=== PATIENT | male | born 1945 | race Caucasian/White ===

== ENCOUNTER 2016-11-08 12:50 | Inpatient (IN) | payer MEDICARE ==
[~2016-11-08] VITALS: Ht 182.9 cm; Wt 108.2 kg
[2016-11-08] VITALS (29 sets, daily range): BP systolic 82–156; BP diastolic 42–86; BMI 29.9
--- NOTE | 2016-11-08 12:00 | NUR ---
PT ARRIVED TO ROOM VIA STRETCHER FROM EMS MED FLIGHT. PT IS ON VENTILATOR. SETTINGS OF 100%, RESP. 14, 550, PEEP 5. O2 SAT OF 98%. BP 130/60, HR 101, TEMP 98.0 TEMPORAL. ETT SIZE 8.0 AT 24CM LIP LINE. HAS OG TUBE. NAVARRO CONTAINS SMALL AMOUNT OF DARK URINE. PT HAS BILATERAL ARM EDEMA, BRUISING AND DRY SCALY SKIN. ABDOMEN IS ROUND, BUT SOFT. OLD BRUISING JUST ABOVE NAVEL. RIGHT KNEE APPEARS SWOLLEN, BUTTOCKS RED BUT BLANCHABLE, FEET BILATERAL ARE DISCOLORED RED/PURPLE, PULSES WEEK, SKIN DRY AND CRACKING. PIV TO LEFT FOREARM HAS DOPAMINE AND NS. PT PLACED IN RESTRAINS AND HOOKED UP TO MONITORING EQUIPMENT.
--- NOTE | 2016-11-08 13:36 | NUR ---
PT NOW HAS 22G TO UPPER LEFT ARM. DIPRIVAN RUNNING, DOPAMINE AND NS. VENT SETTINGS NOW AT 75%, RESP 16, 600 AND PEEP 5.
[2016-11-08 14:51] LABS: BASOPHILS 0.2 % (0.0-2.0); EOSINOPHILS 0.5 % (0-7); HEMATOCRIT 38.9 % (42.0-54.0); HEMOGLOBIN 12.1 g/dL (13.5-17.5); IMMATURE GRANULOCYTES 0.3 % (0-5); LYMPHOCYTES 8.6 % (15-50); MCH 30.9 pg (26.0-34.0); MCHC 31.1 g/dL (31.0-37.0); MCV 99.2 fL (80.0-100.0); MEAN PLATELET VOLUME 9.7 fL (7.4-10.4); MONOCYTES 10.6 % (2-11); NEUTROPHILS 79.8 % (40-80); PLATELET COUNT 176 10x3/uL (130-400); RBC 3.92 10x6/uL (4.20-6.10); RDW 14.4 % (11.5-14.5)
--- NOTE | 2016-11-08 14:57 | NUR ---
FAMILY HAS BEEN IN TO SEE PATIENT. SOME ADDITIONAL INFORMATION PROVIDED. DR KEATING HERE NOW TO SEE PATIENT
[2016-11-08 15:00] LABS: ALBUMIN 1.7 g/dL (3.4-5.0); BILIRUBIN - TOTAL 1.41 mg/dL (0.2-1.3); CALCIUM 8.2 mg/dL (8.5-10.1); CARBON DIOXIDE 21.4 mmol/L (21.0-32.0); CREATININE - SERUM 4.3 mg/dL (0.6-1.3); PROTEIN - SERUM 5.5 g/dL (6.4-8.2)
[2016-11-08 15:06] LABS: ANION GAP 18.4 mmol/L (8-16)
[2016-11-08 15:07] LABS: POTASSIUM - SERUM 6.8 mmol/L (3.5-5.1)
--- NOTE | 2016-11-08 15:34 | NUR ---
Is the patient Alert and Oriented? Yes 0 * How many steps to enter\exit or inside your home? 3 0 * PCP DR MCKAY IN [place] 0 * Pharmacy [facility] IN [place] 0 * Preadmission Environment Home Alone 0 * ADLs Independent 0 * Equipment None 0 * List name and contact numbers for known caregivers / representatives who currently or will assist patient after discharge: SISTER: JORDY PACHECO (H) [phone] (C) [phone] 0 * Community resources currently utilized None 0 * Additional services required to return to the preadmission environment? No 0 * Can the patient safely return to the preadmission environment? Yes 0 * Has this patient been hospitalized within the prior 30 days at any hospital? No 0 PATIENT STATES HE LIVES AT HOME ALONE. HIS SISTER, JORDY, WILL ASSIST HIM AT DISCHARGE. SHE WILL DRIVE HIM HOME. PATIENT STATES HIS PCP IS DR. MCKAY IN [place]. HE GETS HIS MEDS FROM [facility] IN [place]. HE DENIES USE OF ANY EQUIPMENT AND DENIES EVER HAVING HOME HEALTH. THERE ARE 3 STEPS TO ENTER HIS HOME. NO DISCHARGE NEEDS AT THIS TIME.
--- NOTE | 2016-11-08 15:46 | NUR ---
Is the patient Alert and Oriented? No 0 * How many steps to enter\exit or inside your home? 2 0 * PCP DR. BURRIS AT [facility] IN [facility] 0 * Pharmacy [facility] IN [facility] 0 * Preadmission Environment Home Alone 0 * ADLs Independent 0 * Equipment Oxygen Rolling Walker Wheelchair 0 * Other Equipment PATIENT O2 PROVIDED BY [facility] IN [facility] 0 * List name and contact numbers for known caregivers / representatives who currently or will assist patient after discharge: SON: YOLANDA [phone] DIL: NATALIA OZUNA [phone] 0 * Additional services required to return to the preadmission environment? Yes 0 * Can the patient safely return to the preadmission environment? No 0 * Has this patient been hospitalized within the prior 30 days at any hospital? No 0 PATIENT IS NOT RESPONSIVE AND ON THE VENT. HIS GRANDAUGHTER, MARTIN DAVID, STATES SHE TAKES CARE OF HIM 3 DAYS PER WEEK. SHE STATES SHE PICKS UP MEDS AND SETS THEM UP FOR HIM. SHE STATES HE HAS A WALKER AND W/C BUT DOES NOT USE THEM. HE IS ON O2 AT 2-3 LITERS AROUND THE CLOCK. PATIENT'S PCP IS DR. BURRIS AT THE [facility] IN [facility]. HE GETS HIS MEDS FROM [facility] IN [facility]. HIS FAMILY WILL DRIVE HIM HOME AT DISCHARGE. PATIENT HAS 2 STEPS TO ENTER HIS HOME.
--- NOTE | 2016-11-08 17:20 | NUR ---
CALLED DR HAWKINS ANSWER SERVICE TO PAGE FOR CONSULT NOTIFICATION TO SEE PATIENT IN THE AM
--- NOTE | 2016-11-08 17:42 | NUR ---
PT IS STILL OFF OF SEDATION OF 1336PM NO EYE OPENING BY SELF SINCE AROUND 1430 PM. DOES NOT RESPOND TO PRESSURE AT FINGERNAILS/TIPS. NO RESPONSE TO "TICKLING" OF FEET BY FAMILY, NOR PRESSURE PPLIED TO A PEN BEING PULLED ALONG FOOT FROM HEEL TO TOE. DOES NOT FOLLOW COMMANDS. DOES NOT COUGH OR GAG WHEN SUCTIONING ETT. PT IS TO HAVE TRIALYSIS CATH PLACED THIS EVENING BY DR CHLIDERS, CONSENT FOR PROCEDURE AND BLOOD IS SIGNED AND IN CHART. PT IS TO HAVE DIALYSIS WHEN LINE IS PLACED. MOST RECENT VENT SETTING IS SIMV 16, 600, PS10, 40%, PEEP5
--- NOTE | 2016-11-08 18:48 | NUR ---
13F 24CM TRIALYSIS CATH PLACED IN LEFT JUGULAR BY DR CHILDERS AT BEDSIDE
--- NOTE | 2016-11-08 19:14 | NUR ---
REPORT RECIEVED. ASSESSMENT COMPLETE PER FLOW SHEET. PT DOES NOT OPEN EYES OR FOLLOW COMMANDS NO RESPONSE TO PAINFUL STIMULI EXTREMETIES X4 FLACCID PROPOFOL OFF. WILL CONTINUE TO MONITOR.
--- NOTE | 2016-11-08 19:17 | NUR ---
DID NOT HEAR FROM DR HAWKINS. CALLED HIS CELL PHONE. NO ANSWER. LEFT VOICEMAIL TO RETURN CALL REGARDING A CONSULT.
--- NOTE | 2016-11-08 19:53 | NUR ---
DIALYSIS AT BEDSIDE
--- NOTE | 2016-11-08 22:10 | NUR ---
PT BECOMING INCREASINGLY AGGITATED PT WILL NOT FOLLOW COMMANDS OR RESPOND TO DEEP STIMULI O2 SAT 88% PLACED BACK ON PROPOFOL, RESP AT BEDSIDE O2 VIA VENT INCREASED TO 100% WILL CONTINUE TO MONITOR.
--- NOTE | 2016-11-08 22:29 | NUR ---
DR HAWKINS CALLED BACK T ORDER FOR HEAD CT WITHOUT CONTRAST TO BE ADM. ORDER PLACED CURRENTLY ON DIALYSIS WILL PAGE AGAIN WITH RESULTS. 0421 DR HAWKINS PAGED GIVEN NEW UPDATE PT WAS AT [facility] ADMITTED ON THE AND TRSF TO [facility] ICU FOR DIALYSIS, HEAD CT WAS DONE ON THE AT [facility] GIVEN RESULTS NO NEW INTERVENTIONS NEEDED AT THIS TIME. WILL REVIEW IN AM.
--- NOTE | 2016-11-08 23:15 | NUR ---
REASSESSMENT OCMPLETE PER LFOW SHEET. NO NE4W FINDINGS. VSS DIALYSIS AT BEDSIDE DENIES NEEDS
[2016-11-09] VITALS (28 sets, daily range): BP systolic 102–176; BP diastolic 49–112; Ht 182.9 cm; Wt 108.2 kg
--- NOTE | 2016-11-09 01:16 | NUR ---
DIALYSIS FINISHED 3L REMOVED. PROPOFOL TURNED OF FOR SEDATION VACATION. WILL CONTINUE TO MONITOR.
--- NOTE | 2016-11-09 03:13 | NUR ---
REASESSMENT COMPLETE PER FLOW SHEET. PT UNRESPONSIVE TO PIAINFUL STIMULI. NO FURTHER NEW ASSESSMENTS NOTED. VSS WILL CONTINUE TO MONITOR.
[2016-11-09 03:26] LABS: BASOPHILS 0.2 % (0.0-2.0); EOSINOPHILS 0.7 % (0-7); HEMATOCRIT 37.6 % (42.0-54.0); HEMOGLOBIN 11.7 g/dL (13.5-17.5); IMMATURE GRANULOCYTES 0.3 % (0-5); LYMPHOCYTES 10.2 % (15-50); MCH 30.7 pg (26.0-34.0); MCHC 31.1 g/dL (31.0-37.0); MCV 98.7 fL (80.0-100.0); MEAN PLATELET VOLUME 9.6 fL (7.4-10.4); MONOCYTES 7.7 % (2-11); NEUTROPHILS 80.9 % (40-80); PLATELET COUNT 191 10x3/uL (130-400); RBC 3.81 10x6/uL (4.20-6.10); WBC 11.8 10x3/uL (4.8-10.8)
[2016-11-09 03:42] LABS: ALBUMIN 1.8 g/dL (3.4-5.0); BILIRUBIN - TOTAL 0.67 mg/dL (0.2-1.3); CALCIUM 7.4 mg/dL (8.5-10.1); CARBON DIOXIDE 24.5 mmol/L (21.0-32.0); CREATININE - SERUM 4.1 mg/dL (0.6-1.3); MAGNESIUM - SERUM 1.8 mg/dL (1.8-2.4); PROTEIN - SERUM 6.1 g/dL (6.4-8.2)
[2016-11-09 03:47] LABS: ANION GAP 14.4 mmol/L (8-16); POTASSIUM - SERUM 3.9 mmol/L (3.5-5.1)
--- NOTE | 2016-11-09 05:30 | NUR ---
PT GIVEN BB INCREASINGLY AGGITATED, NO PURPOSEFUL RESPONSES NOTED ON COMMAND, RESPONDS TO DEEP PAINFUL STIMULI. BP ELEVATED TO 160'S RR 31 PROPOFOL RESTARTED. NEEDS MET.
--- NOTE | 2016-11-09 08:04 | CN ---
PATIENT NAME:MARIYA OZUNA MEDICAL RECORD: [id number] : 41 LOCATION:[id number] ADMIT DATE: 11/08/16 ACCOUNT: [id number] CONSULTING PHYSICIAN: GAYLE CHILDERS MD REFERRING PHYSICIAN: SHAYY MARIANO MD DATE OF CONSULTATION: 11/08/2016 Surgical Consultation REASON FOR CONSULTATION: Dialysis access. HISTORY OF PRESENT ILLNESS: This is a 71-year-old male admitted to the ICU. The patient went into respiratory failure en route to the ER, he was intubated. Currently, he is on the ventilator, he is oliguric, he is obtunded. He has a right lower lobe pneumonia. He does have a previous history of nephrectomy. His creatinine is markedly elevated as well as suffering from hypokalemia. All history was obtained through chart review and discussion with the registered nurse. PAST MEDICAL HISTORY: Coronary artery disease with stents and angioplasty, previous SD, hypertension and COPD. PAST SURGICAL HISTORY: Nephrectomy. ALLERGIES: PENICILLIN AND NAPROXEN. FAMILY HISTORY: Unobtainable. SOCIAL HISTORY: Unobtainable, secondary to patient factors. REVIEW OF SYSTEMS: A 12-point review of systems is unobtainable secondary to the patient's respiratory failure. PHYSICAL EXAMINATION: VITAL SIGNS: Temperature 98.3, pulse 85, respiratory rate 16 and blood pressure 118/52. GENERAL: Elderly male in marked distress. NECK: Supple. No thyromegaly. EAR, NOSE AND THROAT: Poor dentition. Eyes: No scleral icterus. CARDIOVASCULAR: Normal sinus rhythm. He has decreased breath sounds bilaterally. He has got bilateral crackles. ABDOMEN: Soft, nontender, and nondistended. SKIN: Warm and dry. Normal turgor. EXTREMITIES: No peripheral edema. SKIN: Warm and dry. IMAGING: Chest x-ray reviewed, which shows congestive failure with bilateral interstitial disease. IMPRESSION: A 71-year-old male with acute respiratory failure, acute renal failure, severe hypokalemia and oliguria. PLAN: We will place an emergent Trialysis line for emergent hemodialysis at nephrology's requests. CONSULT REPORT [id number] MARIYA OZUNA TRANSINT:[id number] Voice Confirmation ID: [id number] DOCUMENT ID: [id number] GAYLE CHILDERS MD at 0804 CC: [id number] DICTATION DATE: 11/08/16 1755 EMPLOYEE RELATIONS DIRECTOR: 11/09/16 0244 ADM IN [facility] [address] [id number]
--- NOTE | 2016-11-09 08:04 | OP ---
PATIENT NAME: MARIYA OZUNA MEDICAL RECORD: [id number] :41 LOCATION:.[facility] D.2307 ADMISSION DATE:11/08/16 SURGEON: GAYLE CHILDERS MD DATE OF OPERATION: 11/08/2016 PREOPERATIVE DIAGNOSES: 1. Hypokalemia. 2. Acute renal failure. 3. Acute respiratory failure. POSTOPERATIVE DIAGNOSES: 1. Hypokalemia. 2. Acute renal failure. 3. Acute respiratory failure. PROCEDURE PERFORMED: Ultrasound-guided Left internal jugular Trialysis line placement. ANESTHESIA: Local. COMPLICATIONS: None. SPECIMENS: None. Case was clean. PROCEDURE COURSE: After consent was obtained, the patient was placed in the supine position is the ICU bed. He was placed in the Trendelenburg position. The neck was prepped and draped in the typical sterile fashion. Timeout taken the confirm the correct patient and procedure. The left internal jugular vein was identified with the ultrasound probe. Local anesthetic was injected. The left internal jugular vein was cannulated under ultrasound guidance. Blood was aspirated, the guidewire was placed, the needle was removed. Skin incision was made with an 11-blade scalpel. Dilator was passed over the wire in standard Seldinger fashion. The catheter was then passed with the wire in standard Seldinger fashion. It was secured to the skin using 2-0 nylon suture and a sterile Tegaderm dressing. At the end of the procedure, all needle and instrument counts correct. No complications occurred. Postprocedure chest x-ray was performed. TRANSINT:[id number] Voice Confirmation ID: [id number] DOCUMENT ID: [id number] GAYLE CHILDERS MD at 0804 CC: [id number] DICTATION DATE: 11/08/16 1755 NON CATEGORICAL PRESCHOOL TEACHER: 11/09/16 0246 ADM IN [id number] [place] [address]
--- NOTE | 2016-11-09 09:51 | NUR ---
Nutrition Note: Spoke with Dr. Ma and TF to begin today. Will put order in to start TF of Pulmocare @ 20 ml/hr; advance 10 ml every 8-10 hours as tolerated to goal rate of 40 ml/hr. Water flushes 25 ml/hr. Noted per MD note trying to wean pt from Diprivan. Will adjust goal rate as needed. RD will continue to monitor pt progress.
--- NOTE | 2016-11-09 10:00 | NUR ---
FAMILY AT BEDSIDE. HAS HAD CONVERSATION WITH BETTY ERVIN FROM CARDIOLOGY AND DR KOTHARI. DISCUSSED 3L OF FLUID HAVING BEEN REMOVED WITH DIALYSIS LAST NIGHT. PT NO LONG ON MEDICATION TO REGULATE BLOOD PRESSURE. SEDATION STOPPED SO THAT WE CAN EVALUATE NEUROFUNCTION WITH EEG LATER TODAY. YOLANDA AND NATALIA (SON AND DAUGHTER IN LAW) PLAN TO RETURN TO [place] TODAY. WILL UPDATE WITH ANY CHANGES.
--- NOTE | 2016-11-09 11:00 | NUR ---
SCD'S PLACED ON PT.
--- NOTE | 2016-11-09 11:51 | NUR ---
PT BEING PREPPED FOR EEG
--- NOTE | 2016-11-09 13:59 | EC ---
PATIENT:MARIYA OZUNA DATE OF SERVICE: 11/08/16 SEX: M MEDICAL RECORD: [id number] DATE OF : 41 LOCATION:[facility] D230 AGE OF PATIENT: 71 ADMISSION DATE: 11/08/16 REFERRING PHYSICIAN: INTERPRETING PHYSICIAN: NOEL MAGAÑA MD ECHOCARDIOGRAM REPORT ECHO CHARGES 4 ECHO COMPLETE CLINICAL DIAGNOSIS: MULTIPLE STENTS/CAD/CODE BLUE ASSESS EF AND VALVES ECHOCARDIOGRAPHIC MEASUREMENTS (adult normal given) AC root (d.<3.7cm) 3.2 LV Septum d (<1.2 cm> 1.7 Valve Excursion 1.7 LV Septum (systole) 2.0 Left Atria (s.<4.0cm> 3.9 LVPW d(<1.2cm) 1.4 RV (d.<2.3cm) 3.4 LVPW (sytole) 1.8 LV diastole(<5.6CM) 6.3 MV E-F(>70mm/sec) LV systole 5.2 LVOT Diameter 1.8 MV exc.(>10mm) 1.7 Est.ejection fraction (50-75%) Pericardial Effusion N DOPPLER: LVIT A 63.0 E 71.0 LA RVSP 21 LVOT 145 AOP1/2T Asc. Ao 151 RVOT 85 RA PA 132 AV Gradient Peak 9.10 AV Mean 4.02 AV Area 2.6 MV Gradient Peak 3.4 MV Mean 1.26 MV Area COMMENTS: Coconut Cooker: Carolyn ROTH Space Operations:Russ Magaña TAPE# PACS DATE OF SERVICE: 11/09/2016 Echocardiogram FINDINGS: 1. Left ventricular chamber size is dilated. Left ventricular systolic function is moderately reduced, overall ejection fraction 30% to 35%. 2. Left atrium is within normal limits, right atrium, and right ventricular chamber sizes are as well within normal limits. 3. Valvular structures have normal structure and motion. ECHOCARDIOGRAM REPORT [id number] MARIYA OZUNA 4. Doppler interrogation reveals mild to moderate mitral regurgitation, mild tricuspid regurgitation, no other valvular insufficiency or stenosis and pulmonary systolic pressure is preserved at 21 mmHg. 5. No evidence of pericardial effusion or left ventricular thrombus. TRANSINT:[id number] Voice Confirmation ID: [id number] DOCUMENT ID: [id number] NOEL MAGAÑA MD at 1359 CC: [id number] DICTATION DATE: 11/09/16 1242 CANAL LOCK TENDER CHIEF OPERATOR: 11/09/16 1304 ADM IN [facility] [address] [id number]
--- NOTE | 2016-11-09 14:02 | NUR ---
PT HR ELEVATION TO 150'S AND 140'S. BP 170'S/100. PT REDFACED, DIAPHORETIC, AFEBRILE, RESPIRATIONS MID-20 TO 30'S ON VENTILATOR. DIPRIVAN RESTARTED SINCE EEG COMPLETED. BLOOD GASSES OBTAINED. DR ZURI JACOME. EKG OBTAINED. LABS ORDERED. PT RESPIRATIONS NOW IRREGULAR AND APPEAR STACKED.
--- NOTE | 2016-11-09 14:50 | NUR ---
DR WEINSTEIN HAS BEEN BY TO SEE PATIENT. SPOKE WITH DR KOTHARI, WANTS PATIENT ON A/C, WILL COME BACK BY TO SEE HIM
--- NOTE | 2016-11-09 14:54 | NUR ---
NATALIA CALLED TO CHECK ON PATIENT NOW THAT THEY MADE IT HOME. LET HER KNOW WE HAVE HIM BACK ON SEDATION DUE TO HR, RESP, AND BP INCREASES.
[2016-11-09 14:59] LABS: CKMB 15.6 U/L (0.0-3.6); CREATINE KINASE 138 UL (21-232)
--- NOTE | 2016-11-09 18:01 | NUR ---
DR KEATING CAME BACK BY TO CHECK ON PT.VSS AT THIS TIME.
--- NOTE | 2016-11-09 18:30 | NUR ---
CALLED [employer] IN [place] NATALIA TO GIVE UPDATE BEFORE LEAVING FOR THE EVENING. NO CHANGES IN STATUS AT THIS POINT. LET HER KNOW STILL NO RESULTS OF EEG.
--- NOTE | 2016-11-09 19:26 | NUR ---
REPORT RECEIVED. ASSESSMENT COMPLETE PER FLOW SHEET. VSS. REPOSITIONED UP IN BED ON R SIDE. ORAL ENDOTRACH CARE ADM WILL COTINUE TO MONITOR.
--- NOTE | 2016-11-09 22:10 | NUR ---
GIVEN FAMILY UPDATE VIA T. NO NEW CHANGESAT THIS TIME. WILL CONTINUE TO MONITOR.
--- NOTE | 2016-11-09 23:22 | NUR ---
SPUTUM FROM INLINE SUCTION PINK FROTHY NO NEW ASSESSMENTS NOTED. VSS WILL CONTINUE TO MONITOR.
[2016-11-10] VITALS (24 sets, daily range): BP systolic 96–148; BP diastolic 46–68
--- NOTE | 2016-11-10 01:19 | NUR ---
COMPLETE BB LINEN CHANGE ADM. NEEDS MET. NO NEW CHANGES. VSS WILL CONTINUE T OMONITOR.
--- NOTE | 2016-11-10 03:16 | NUR ---
REASSESSMNET COMPMLETE PER FLOW SHEET. NO NEW CHNAGES WILL CONTINUE TO MONITOR.
[2016-11-10 03:44] LABS: BASOPHILS 0.2 % (0.0-2.0); EOSINOPHILS 5.4 % (0-7); HEMATOCRIT 34.9 % (42.0-54.0); HEMOGLOBIN 11.2 g/dL (13.5-17.5); IMMATURE GRANULOCYTES 0.5 % (0-5); LYMPHOCYTES 14.8 % (15-50); MCH 31.1 pg (26.0-34.0); MCHC 32.1 g/dL (31.0-37.0); MCV 96.9 fL (80.0-100.0); MEAN PLATELET VOLUME 9.5 fL (7.4-10.4); MONOCYTES 9.4 % (2-11); NEUTROPHILS 69.7 % (40-80); PLATELET COUNT 211 10x3/uL (130-400); WBC 10.5 10x3/uL (4.8-10.8)
[2016-11-10 04:05] LABS: ALBUMIN 1.7 g/dL (3.4-5.0); ANION GAP 12.4 mmol/L (8-16); BILIRUBIN - TOTAL 0.46 mg/dL (0.2-1.3); CALCIUM 7.8 mg/dL (8.5-10.1); CARBON DIOXIDE 27.4 mmol/L (21.0-32.0); CREATININE - SERUM 4.7 mg/dL (0.6-1.3); POTASSIUM - SERUM 3.8 mmol/L (3.5-5.1); PROTEIN - SERUM 5.7 g/dL (6.4-8.2)
--- NOTE | 2016-11-10 05:15 | NUR ---
COMPLETE BB LINEN CHANGE ADM. VSS NO NEW CHANGES WILL CONTINU TO MONITOR.
--- NOTE | 2016-11-10 08:42 | NUR ---
UP IN BED AT THIS TIME. PT DOES NOT FOLLOW SIMPLE COMMANDS BUT DOES OPEN EYES AND RAISE EYEBROWS WHEN SPOKEN TO. PT DOES NOT TRY TO TRACE PEOPLE WITH EYES WHEN SPOKEN TO. NO ACUTE DISTRESS NOTED. WILL CONTINUE PLAN OF CARE.
--- NOTE | 2016-11-10 09:40 | NUR ---
SPOKE WITH PT FAMILY, DAUGHTER NATALIA, WHO REQUESTS TO SPEAK WITH DR HAWKINS TOMORROW. NOTIFIED PT DAUGHTER THAT DR HAWKINS HAS ALREADY ROUNDED TODAY BUT WHEN HE ROUNDS TOMORROW STAFF WILL CONTACT HER AT [phone]. PT DAUGHTER THEN STATED THAT SHE WOULD BE BY IN THE MORNING TO SPEAK WITH PHYSICIANS. UPDATE ALSO HAD BEEN GIVEN AT THIS TIME. NO FURTHER CONCERNS NOTED AT THIS TIME. WILL CONTINUE PLAN OF CARE.
--- NOTE | 2016-11-10 10:18 | NUR ---
Nutrition Follow Up: Chart reviewed and spoke with RN. TF has been off due to procedure this am but has been restarted. Per RN pt with residuals of [address] asked RN to restart TF @ 20 ml/hr and will advance slowly to goal. Pt remains intubated and sedated. Meds noted including Dopamine, Diprivan @ 5.6 ml/hr providing 148 kcal/d. Labs noted - BUN, Cr elevated. Will change orders to advance TF of Pulmocare 10 ml every 12 hours as tolerated to goal rate of 45 ml/hr (previous goal was 40 ml/hr). Water flushes 25 ml/hr. TF @ goal will provide 1620 kcal (including Diprivan pt will receive 1768 kcal/d; 18kcal/kg actual wt) and [address] will continue to monitor pt progress.
--- NOTE | 2016-11-10 10:38 | NUR ---
LYING IN BED AT THIS TIME. NO ACUTE DISTERSS NOTED. PT NOTED TO COUGH AT TIMES WHEN SUCTIONED. LINENS CHANGED AT THIS TIME, PITTING, WEEPING EDEMA NOTED TO BILATERAL ARMS. TURNED Q2H. NO ACUTE DISTRESS NOTED. WILL CONTINUE PLAN OF CARE.
--- NOTE | 2016-11-10 10:45 | NUR ---
NOTED RESIDUAL OF 60ML, PAID INTERNSHIP ROUNDING AT THIS TIME, NOTIFIED PAID INTERNSHIP. SHE STATED TO BACK TUBE FEEDINGS DOWN FROM 40ML/HOUR TO 20ML/HOUR AND RESTART INCREASING TO GOAL Q12H. NEW ORDERS PLACED BY PAID INTERNSHIP. NO ACUTE DISTRESS NOTED. WILL CONTINUE PLAN OF CARE.
--- NOTE | 2016-11-10 12:16 | NUR ---
TURN Q2H. SUCTION PROVIDED, SMALL AMOUNT OF THIN CLEAR SECRETIONS NOTED. NO ACUTE DISTRESS NOTED. WILL CONTINUE PLAN OF CARE.
--- NOTE | 2016-11-10 12:40 | CN ---
PATIENT NAME:MARIYA OZUNA MEDICAL RECORD: [id number] : 43 LOCATION:[facility].2307 ADMIT DATE: 11/08/16 ACCOUNT: [id number] CONSULTING PHYSICIAN: JAMEY KOTHARI MD REFERRING PHYSICIAN: SHAYY MARIANO MD DATE OF CONSULTATION: 11/08/2016 Pulmonary Consultation CONSULT REQUESTING PHYSICIAN: Rolanda Santos MD REASON FOR CONSULTATION: Vent management, critical care. HISTORY OF PRESENT ILLNESS: Mr. Ozuna is a 71-year-old gentleman who was transferred from [facility]. The patient admitted, who was thereafter found unresponsive and was in agonal breathing and the patient was intubated. He has a right lower lobe pneumonia and also the patient was in renal failure. The patient was hypotensive with septic shock. He was IV fluid resuscitated, but his oxygen requirement went up with worsening pulmonary edema. On arrival over here, the labs shows he has a leukocytosis as well as the potassium of 6.8. REVIEW OF SYSTEMS: Mainly in the history of present illness. PAST MEDICAL HISTORY: 1. COPD. 2. Chronic hypoxic respiratory failure, home oxygen dependent. 3. Coronary artery disease. PAST SURGICAL HISTORY: He has had multiple catheterization and stent placement. Other surgical history not obtainable. PERSONAL AND SOCIAL HISTORY: The patient is an ex-smoker. He is a nondrinker. FAMILY HISTORY: Unknown. PHYSICAL EXAMINATION: GENERAL: Now, the patient is orally intubated and sedated. VITAL SIGNS: The blood pressure is 130/60, pulse is 101, respiration is 16, temperature is 98.1, and SPO2 is 100% on assist control mechanical ventilation. HEENT: Conjunctiva is pink. Sclerae is not icteric. The pupils are very sluggish to react. NECK: Supple, no JVD. CHEST: The chest excursion is minimal and both have bilateral crackles. No wheezing. HEART: Rhythm regular, normal sound, no murmur. ABDOMEN: The abdomen is soft, bowel sounds present. No hepatosplenomegaly. RECTAL: Deferred. EXTREMITIES: No cyanosis, no clubbing. There is 1+ pedal edema. SKIN: Warm, normal turgor. CENTRAL NERVOUS SYSTEM: There is no obvious cranial nerve abnormality. The patient is unresponsive. The pupils are sluggish to react. CHEST RADIOGRAPH: There is bilateral pulmonary edema. The ET tube is in good position. CONSULT REPORT [id number] MARIYA OZUNA OTHER LABORATORY DATA: CBC: WBC 12,000, hemoglobin 12.1, hematocrit 38.9, and the platelet count 176. Chemistry: Sodium 139, potassium 6.8, BUN is 57, creatinine 4.3. ABG: The pH is 7.25, pCO2 is 47.9, the bicarb is 32.6. IMPRESSION: 1. Krsip-ja-qidjmoq hypoxic hypercapnic respiratory failure. 2. Respiratory acidosis. 3. Acute exacerbation of chronic obstructive pulmonary disease. 4. Septic shock. 5. Pneumonia, right lower lobe, possible aspiration when the patient was unresponsive, possible community-acquired pneumonia. 6. Hyperkalemia secondary to acute kidney injury, acute tubular necrosis. 7. History of coronary artery disease. 8. Possible anoxic encephalopathy. RECOMMENDATION: 1. We will continue mechanical ventilation, adjust the setting. 2. Follow series of labs and chest radiograph. Check blood culture and sensitivity. 3. Check sputum culture and sensitivity. 4. Consult cardiology. Consult neurology, Dr. Childs. 5. Check the sputum culture and sensitivity. The patient is going to dialysis today. 6. DVT and GI stress ulcer prevention. 7. Continue the dopamine. The patient may require Levophed. Dr. Beck, once again, thanks for involving me in the care of Mr. Ozuna. The critical care time is 45 minutes. TRANSINT:[id number] Voice Confirmation ID: [id number] DOCUMENT ID: [id number] JAMEY KOTHARI MD at 1240 CC: DANNY BECK MD [id number] DICTATION DATE: 11/08/161654 PERSONAL BANKER: 11/08/162038 ADM IN [id number] [place] [address]
--- NOTE | 2016-11-10 13:20 | NUR ---
SPOKE WITH PT DAUGHTER, NATALIA. UPDATE GIVEN. NO FURTHER QUESTIONS OR CONCERNS NOTED. NO DISTRESS NOTED TO PT. WILL CONTINUE PLAN OF CARE.
--- NOTE | 2016-11-10 14:05 | NUR ---
NO CHANGES NOTED TO PT AT THIS TIME. VSS. PT STILL NOTED TO OPEN EYES AND RAISE EYEBROWS WHEN SPOKEN TO HOWEVER DOES NOT FOLLOW COMMANDS OR TRACE PEOPLE IN ROOM WITH EYES. NO ACUTE DISTRESS NOTED. WILL CONTINUE PLAN OF CARE.
--- NOTE | 2016-11-10 16:22 | NUR ---
RESIDUAL CHECKED AT THIS TIME AND NOTED AT 10ML. NO ACUTE DISTRESS NOTED. ALSO NOTED WEEPING EDEMA TO BILATERAL UPPER EXTREMITIES APPEARS TO HAVE DECREASED. WILL CONTINUE PLAN FO CARE.
--- NOTE | 2016-11-10 17:23 | NUR ---
TURNED Q2H. NO ACUTE DISTRESS NOTED. PT NOTED TO ATTEMPTS TO TURN HEAD SLIGHTLY TOWARDS STAFF WHEN STAFF SPEAKS TO HIM. STILL OPENING EYES AND RAISING EYEBROWS. HOWEVER STILL NOT FOLLOWING COMMANDS. NO ACUTE DISTRESS NOTED. WILL CONTINUE PLAN OF CARE.
--- NOTE | 2016-11-10 19:35 | NUR ---
PT SEDATED AMD INTUBATED, WILL OPEN EYES, NOT ABLE TO FOLLOW SIMPLE COMMANDS. LUNG SOUNDS CRACKLES, ORAL CARE ADM USING [employer]. PERIPHERAL PULSES PRESENT. BOWEL SOUNDS HYPOACTIVE IN ALL QUADRANTS. PT REPOSITIONED WITH BONY PROMINENCES BRIDGED. PARTIAL LINEN CHANGE. NO S/S OF PAIN. ROOM VISIBLE FROM NURSES STATION. CPOC.
--- NOTE | 2016-11-10 23:30 | NUR ---
REASSESSMENT COMPLETE, SEE FLOWSHEET FOR ALL FINDINGS. NO NEW CHANGES AT THIS TIME. PT REPOSITIONED WITH BONY PROMINENCES BRIDGED. ORAL CARE ADM. PARTIAL LINEN CHANGE. NO S/S OF DISTRESS AT THIS TIME. ROOM VISIBLE FROM NURSES STATION. CPOC.
[2016-11-11] VITALS (26 sets, daily range): BP systolic 103–180; BP diastolic 48–101
--- NOTE | 2016-11-11 01:40 | NUR ---
PT REPOSITIONED WITH BONY PROMINENCES BRIDGED. ORAL CARE ADM. UNABLE TO FOLLOW COMMANDS AT THIS TIME. NO NEW CHANGES AT THIS TIME. ROOM VISIBLE FROM NURSES STATION. CPOC.
[2016-11-11 04:48] LABS: BASOPHILS 0.3 % (0.0-2.0); EOSINOPHILS 7.1 % (0-7); HEMATOCRIT 33.4 % (42.0-54.0); HEMOGLOBIN 10.7 g/dL (13.5-17.5); IMMATURE GRANULOCYTES 0.7 % (0-5); LYMPHOCYTES 15.7 % (15-50); MCH 30.6 pg (26.0-34.0); MCV 95.4 fL (80.0-100.0); MEAN PLATELET VOLUME 9.3 fL (7.4-10.4); MONOCYTES 13.7 % (2-11); NEUTROPHILS 62.5 % (40-80); PLATELET COUNT 208 10x3/uL (130-400); RDW 13.9 % (11.5-14.5); WBC 9.3 10x3/uL (4.8-10.8)
[2016-11-11 05:17] LABS: ALBUMIN 1.6 g/dL (3.4-5.0); ANION GAP 14.3 mmol/L (8-16); BILIRUBIN - TOTAL 0.5 mg/dL (0.2-1.3); CALCIUM 8.1 mg/dL (8.5-10.1); CARBON DIOXIDE 25.7 mmol/L (21.0-32.0); CREATININE - SERUM 4.7 mg/dL (0.6-1.3); PHOSPHOROUS 3.9 mg/dL (2.5-4.9); PROTEIN - SERUM 5.9 g/dL (6.4-8.2)
--- NOTE | 2016-11-11 06:00 | NUR ---
PARTIAL LINEN CHAGNE COMPLETE. PT REPOSITIONED WITH BONY PROMINENCES BRIDGED. VSS, NO S/S OF DISTRESS AT THIS TIME. CPOC.
--- NOTE | 2016-11-11 08:14 | NUR ---
FAMILY IN ROOM AT BEDSIDE AT THIS TIME. UPDATE GIVEN. NOTED PT WISH TO SPEAK WITH DR HAWKINS. DR HAWKINS IS ON FLOOR AT THIS TIME ROUNDING. NO ACUTE DISTRESS NOTED AT THIS TIME. PT NOTED TO OPEN EYES AND RAISE EYEBROWS WHEN SPOKEN TO, STILL NOT FOLLOWING DIRECTIONS. WILL CONTINUE PLAN OF CARE.
--- NOTE | 2016-11-11 09:06 | NUR ---
SPOKE WITH PT FAMILY ABOUT PT PHARMACY OF USE, THEY STATED HE US[facility] AND THAT PT ALSO USES PHARMACY FOR ONLY TWO OR THREE MEDICATIONS AT THE [place]. PT FAMILY DOES NOT CURRENTLY HAVE PT HOME MEDS LIST BUT THEY STATED THAT THEY WOULD MAKE A LIST WHEN THEY GET HOME AND FAX IT TO THIS UNIT LATER TODAY. WILL CONTINUE PLAN OF CARE.
--- NOTE | 2016-11-11 09:41 | NUR ---
NOTED ORDER TO RECIEVE CONSENT BY PT SON, JASPER, FOR PT TO HAVE BRONCHOSCOPY. ORDER OBTAINED AT THIS TIME. PT FAMLY DENIES ANY QUESTIONS OR CONCERNS. NO ACUTE DISTRESS NOTED. WILL CONTINUE PLAN OF CARE.
--- NOTE | 2016-11-11 09:50 | NUR ---
NOTED PT BEGINNING TO MOVE ARMS AND LEGS AND APPEARING UNCOMFORTABLE. PULSE RATE AT 124 SINUS, RESPIRATIONS AT 21, OXYGEN SATURATION AT 94%, BLOOD PRESSURE 162/77. PROPIFOL INCREASED FROM 6MCG TO 10MCG AT THIS TIME. WILL CONTINUE TO OBSERVE.
--- NOTE | 2016-11-11 10:22 | NUR ---
PT NOTED TO BECOME MORE RESTLESS IN BED, MOVING ARMS AND LEGS, COUGHING OVER VENT. OXYGEN SATRUATION LOWERED TO 88%, PULSE RATE INCREASED TO 142 SINUS WITH PVC, BLOOD PRESSURE AT 180/101 (MAP 128) RESPIRATIONS AT 31RPM. PROPIFOL INCREASED FROM 10MCG TO 20MCG. PULSE RATE NOW 101 SINUS, RESPIRATORY RATE 16, OXYGEN SATURATION 94%, BLOOD PRESSURE 155/64. PT APPEARS RELAXED. WILL CONTINUE PLAN OF CARE.
--- NOTE | 2016-11-11 10:44 | NUR ---
RESIDUAL CHECKED AT THIS TIME AND NOTED AT 10ML. TUBE FEEDINGS INCREASED FROM 20ML/HOUR TO 30ML/HOUR. NO DISTRESS NOTED. VSS. WILL CONTINUE TO OBSERVE.
--- NOTE | 2016-11-11 12:55 | NUR ---
NO ACUTE DISTRESS NOTED AT THIS TIME. VSS. WILL CONTINUE PLAN OF CARE.
--- NOTE | 2016-11-11 15:07 | NUR ---
RECIEVING DIALYSIS AT THIS TIME. NO ACUTE DISTRESS NOTED. VSS. WILL CONTINUE PLAN OF CARE.
--- NOTE | 2016-11-11 17:39 | NUR ---
RECIEVING DIALYSIS AT THIS TIME. NO ACUTE DISTRESS NOTED. SPOKE WITH PT DAUGHTER. UPDATE GIVEN. RECIEVED FAX FROM PT DAUGHTER OF PT HOME [facility]. WILL RECONCILE MEDS.
[2016-11-11] MEDS ORDERED: METOPROLOL TART25 MG PO ×2 (17:47→18:04)
[2016-11-11] MEDS ORDERED: NORVASC10 MG PO (17:48)
[2016-11-11] MEDS ORDERED: DIOVAN80 MG PO (17:49)
[2016-11-11] MEDS ORDERED: CHILDREN'S ASPI81 MG PO (17:50)
[2016-11-11] MEDS ORDERED: FUROSEMIDE20 MG PO (17:51)
[2016-11-11] MEDS ORDERED: PROSCAR5 MG PO (17:51)
[2016-11-11] MEDS ORDERED: CIMETIDINE200 MG PO (17:52)
[2016-11-11] MEDS ORDERED: LIPITOR80 MG PO (17:53)
[2016-11-11] MEDS ORDERED: CALCIUM 500 + D1 TAB PO (17:54)
[2016-11-11] MEDS ORDERED: ACETAMINOPHEN500 M1 PO (17:54)
[2016-11-11] MEDS ORDERED: RANEXA500 MG PO (17:55)
[2016-11-11] MEDS ORDERED: SPIRIVA18 MCG INH (17:55)
[2016-11-11] MEDS ORDERED: PLAVIX75 MG PO (17:56)
--- NOTE | 2016-11-11 19:33 | NUR ---
PT SEDATED AND INTUBATED. UNABLE TO FOLLOW COMMANDS, WILL OPEN EYES AND MOVE HEAD FROM SIDE TO SIDE. LUNG SOUNDS CRACKLES, ORAL CARE ADM AT THIS TIME USING [employer]. PT REPOSITIONED WITH BONY PROMINENCES BRIDGED. PARTIAL LINEN CHANGE. VSS, NO S/S OF DISTRESS AT THIS TIME. ROOM VISIBLE FROM NURSES STATION. CPOC.
--- NOTE | 2016-11-11 21:22 | NUR ---
PT REPOSITIONED WITH BONY PROMINENCES BRIDGED. ORAL CARE ADM. NO S/S OF DISTRESS AT THIS TIME. IV TUBING CHANGED. ROOM VISIBLE FROM NURSES STATION. CPOC.
--- NOTE | 2016-11-11 23:33 | NUR ---
REASSESSMENT COMPLETE, SEE FLOWSHEET FOR ALL FINDINGS. NO ACUTE CHANGES NOTED AT THIS TIME. PT REPOSITIONED WITH BONY PROMINENCES BRIDGED. ORAL CARE ADM USING [employer]. VSS, NO S/S OF PAIN OR DISTRESS NOTED AT THIS TIME. ROOM VISIBLE FROM NURSES STATION. CPOC.
[2016-11-12] VITALS (27 sets, daily range): BP systolic 98–190; BP diastolic 45–103
--- NOTE | 2016-11-12 03:35 | NUR ---
REASSESSMENT COMPLETE, SEE FLOWSHEET. NO NEW FINDINGS AT THIS TIME. REPOSITONED WITH BONY PROMINENCES BRIDGED, PARTIAL LINEN CHANGE. ORAL CARE ADM.
[2016-11-12 04:52] LABS: BASOPHILS 0.3 % (0.0-2.0); EOSINOPHILS 7.1 % (0-7); HEMATOCRIT 31.9 % (42.0-54.0); HEMOGLOBIN 10.3 g/dL (13.5-17.5); IMMATURE GRANULOCYTES 1.7 % (0-5); LYMPHOCYTES 11.8 % (15-50); MCH 30.6 pg (26.0-34.0); MCHC 32.3 g/dL (31.0-37.0); MCV 94.7 fL (80.0-100.0); MEAN PLATELET VOLUME 9.1 fL (7.4-10.4); MONOCYTES 13.7 % (2-11); NEUTROPHILS 65.4 % (40-80); PLATELET COUNT 203 10x3/uL (130-400); RBC 3.37 10x6/uL (4.20-6.10); RDW 13.8 % (11.5-14.5); WBC 10.2 10x3/uL (4.8-10.8)
[2016-11-12 05:10] LABS: ALBUMIN 1.6 g/dL (3.4-5.0); ANION GAP 12.8 mmol/L (8-16); BILIRUBIN - TOTAL 0.6 mg/dL (0.2-1.3); CALCIUM 8.3 mg/dL (8.5-10.1); POTASSIUM - SERUM 3.8 mmol/L (3.5-5.1)
[2016-11-12 05:12] LABS: CREATININE - SERUM 2.9 mg/dL (0.6-1.3); PHOSPHOROUS 2.7 mg/dL (2.5-4.9)
--- NOTE | 2016-11-12 07:24 | NUR ---
LYING IN BED AT THIS TIME. NO ACUTE DISTRESS NOTED. OGT RESIDUAL CHECKED AT THIS TIME AND NOTED AT 5ML. TF INCREASED FROM 30ML TO 40ML. GOAL NOTED AT 45ML. WILL CONTINUE PLAN OF CARE.
--- NOTE | 2016-11-12 09:17 | NUR ---
SPOKE WITH PT DAUGHTER. UPDATE GIVEN. NO ACUTE DISTRESS NOTED. VSS. WILL CONTINUE PLAN OF CARE.
--- NOTE | 2016-11-12 11:40 | NUR ---
NOTED BRONCHOSCOPY IS COMPLETE AT THIS TIME. ORDER FROM DR LOPEZ FOR SEDATION VACATION TO SEE IF PT CAN BE WEANED. PROPIFOL PAUSED AT THIS TIME. WILL CONTINUE TO OBSERVE.
--- NOTE | 2016-11-12 12:20 | NUR ---
PT NOTED TO COUGH OVER VENT AT TIMES. OXYGEN SATURATION 96%, RESPIRATIONS AT 27 RPM, PULSE RATE 112, BLOOD PRESSURE 163/70. EYES OPEN, LOOKING UP. MOVING ARMS AND LEGS AT TIMES. NOT FOLLOWING COMMANDS. WILL CONTINUE TO OBSERVE.
--- NOTE | 2016-11-12 12:30 | NUR ---
ATTEMPTED TO ASSESS PT TO SEE IF FOLLOWING DIRECTIONS. NOTED VERY TINY MOVEMENT WHEN ASKING PT TO SQUEEZE HANDS. PT WAS NOT ABLE TO MAKE A FIST OR ACTUALLY SQUEEZE THIS NURSE HAND UPON REQUEST HOWEVER THERE WAS SLIGHT/VERY TINY MOVEMENT TO FINGERS WHEN ASKED PT TO SQUEEZE HAND. WILL CONTINUE TO OBSERVE.
--- NOTE | 2016-11-12 13:16 | NUR ---
PULSE RATE 140, REPIRATIONS AT 29, BP 190/100, OXYGEN SATURATION AT 88%. SPOKE WITH DR LOPEZ NOTED ORDER TO RESTRART SEDATION. PROPIFOL RESTARTED AT THIS TIME AT [facility]. WILL CONTINUE TO OBSERVE.
--- NOTE | 2016-11-12 13:22 | NUR ---
BP NOW 149/66, OXYGEN SATURATION 97%, RESPIRATIONS 18, PULSE RATE 120. PT BEGINNING TO BECOME LESS DISTRESSED. WILL CONTINUE TO OBSERVE.
--- NOTE | 2016-11-12 13:56 | NUR ---
SPOKE WITH PT FAMILY. UPDATE GIVEN. NO FURTHER QUESTIONS OR CONCERNS. VSS. NO ACUTE DISTRESS NOTED. FIO2 AT 40% OXYGEN SATURATION 95%. WILL CONTINUE PLAN FO CARE.
--- NOTE | 2016-11-12 14:21 | NUR ---
OXYGEN SATURATION AT 88% FIO2 SETTING ON VENT INCREASED FROM 40% TO 45% TO HELP PT SATURATION REMAIN ABOVE 90%. OXYGEN SATURATION NOW AT 92% WILL CONTINUE TO OBSERVE.
--- NOTE | 2016-11-12 17:02 | NUR ---
NO ACUTE DISTRESS NOTED. VSS. OXYGEN SATURATION AT 92% WITH FIO2 AT 45%. WILL CONTINUE TO OBSERVE.
--- NOTE | 2016-11-12 17:37 | NUR ---
TOTAL BED CHANGE PROVIDED AT THIS TIME. NOTED LARGE INCONTINENT LOOSE, BROWN BOWEL MOVEMENT. TOTAL BED CHANGE, GAVI CARE AND NAVARRO CARE PROVIDED VIA TOTAL ASSIST X 2 PERSON. VSS. NO ACUTE DISTRESS. WILL CONTINUE PLAN FO CARE.
--- NOTE | 2016-11-12 18:38 | NUR ---
SPOKE WITH PT DAUGHTER, UPDATE GIVEN. VSS. NO ACUTE DISTRESS NOTED. WILL CONTINUE PLAN OF CARE.
--- NOTE | 2016-11-12 23:15 | NUR ---
1914- REPORT RECVD. CARE ASSUMED. INITIAL ASSMNT COMPLETED. SEE FLOWSHEET FOR ALL FINDINGS. SEDATED ON MECH VENT. VSS. SPO2 97% LUNGS COARSE THRU OUT UPPER LOBES. DIM IN BASES. SIMV SETTINGS. SR ON THE MONITOR. PULSES PALP. AFEBRILE. SCDS IN USE. WEEPING 3+ EDEMA TO UPPER EXT NOTED. PITTING 2+ EDEMA TO LOWER EXT. ABD DISTENDED WITH ACTIVE BS X4. OGT INFUSING TF AT GOAL. RESIDUAL 20 CC. BLADDER NON PALP. F/C PATENT WITH UVALDO UOP. TURNED AND REPOSITIONED .ORAL CARE PER VAP. HOB UP. RESTRAINTS PER PROTOCOL. CONT CURRENT POC. 2129- TURNED AND REPOSITIONED. ORAL CARE PER VAP. VSS. NO CHANGES. SPOKE WITH PT DAUGHTER. UPDATE GIVEN. TEACHING COMPLETED. 2314- REASSESSMENT COMPLETED. SEE FLOWSHEET FOR ALL FINDINGS. SEDATED ON MECH VENT. VSS. SPO2 97% LUNGS COARSE THRU OUT UPPER LOBES. DIM IN BASES. SIMV SETTINGS. SR ON THE MONITOR. PULSES PALP. AFEBRILE. SCDS IN USE. WEEPING 3+ EDEMA TO UPPER EXT NOTED. PITTING 2+ EDEMA TO LOWER EXT. ABD DISTENDED WITH ACTIVE BS X4. OGT INFUSING TF AT GOAL. RESIDUAL 20 CC. BLADDER NON PALP. F/C PATENT WITH UVALDO UOP. TURNED AND REPOSITIONED .ORAL CARE PER VAP. HOB UP. RESTRAINTS PER PROTOCOL. CONT CURRENT POC.
[2016-11-13] VITALS (24 sets, daily range): BP systolic 75–147; BP diastolic 48–86
--- NOTE | 2016-11-13 01:30 | NUR ---
TURNED AND REPOSITIONED. ORAL CARE PER VAP. VSS. SEDATED ON MECH VENT. NOACUTE CHANGES. HOB UP. CONT CURRENT POC.
--- NOTE | 2016-11-13 03:15 | NUR ---
REASSESSMENT COMPLETED. SEE FLOWSHEET FOR ALL FINDINGS. SEDATED ON MECH VENT. VSS. SPO2 97% LUNGS COARSE THRU OUT UPPER LOBES. DIM IN BASES. SIMV SETTINGS. SR ON THE MONITOR. PULSES PALP. AFEBRILE. SCDS IN USE. WEEPING 3+ EDEMA TO UPPER EXT NOTED. PITTING 2+ EDEMA TO LOWER EXT. ABD DISTENDED WITH ACTIVE BS X4. OGT INFUSING TF AT GOAL. RESIDUAL 20 CC BLADDER NON PALP. F/C PATENT WITH UVALDO UOP. TURNED AND REPOSITIONED .ORAL CARE PER VAP. HOB UP. RESTRAINTS PER PROTOCOL. CONT CURRENT POC.
[2016-11-13 05:03] LABS: BASOPHILS 0.2 % (0.0-2.0); EOSINOPHILS 5.5 % (0-7); HEMATOCRIT 33.5 % (42.0-54.0); HEMOGLOBIN 10.7 g/dL (13.5-17.5); IMMATURE GRANULOCYTES 1.8 % (0-5); LYMPHOCYTES 12.9 % (15-50); MCH 30.7 pg (26.0-34.0); MCHC 31.9 g/dL (31.0-37.0); MCV 96.3 fL (80.0-100.0); MEAN PLATELET VOLUME 9.3 fL (7.4-10.4); MONOCYTES 10.7 % (2-11); NEUTROPHILS 68.9 % (40-80); PLATELET COUNT 269 10x3/uL (130-400); RBC 3.48 10x6/uL (4.20-6.10); WBC 13.1 10x3/uL (4.8-10.8)
--- NOTE | 2016-11-13 05:30 | NUR ---
NO ELECTROLYTE REPLACEMENT NEEDED. BATH GIVEN. LINENS CHANGED. MEDIUM WATERY BM SEEN. ORAL CARE PROVIDED. VSS. HOB UP. CONT CURRENT POC.
[2016-11-13 05:35] LABS: ALBUMIN 1.7 g/dL (3.4-5.0); ANION GAP 11.8 mmol/L (8-16); BILIRUBIN - TOTAL 0.53 mg/dL (0.2-1.3); CALCIUM 8.2 mg/dL (8.5-10.1); CARBON DIOXIDE 28.1 mmol/L (21.0-32.0); CREATININE - SERUM 3.3 mg/dL (0.6-1.3); MAGNESIUM - SERUM 2.2 mg/dL (1.8-2.4); POTASSIUM - SERUM 3.9 mmol/L (3.5-5.1); PROTEIN - SERUM 6.3 g/dL (6.4-8.2)
[2016-11-13 05:38] LABS: PHOSPHOROUS 4.5 mg/dL (2.5-4.9)
--- NOTE | 2016-11-13 09:56 | NUR ---
Nutrition follow-up: Pt remains intubated, sedated Pulmocare infusing @ 45 ml/hr via OGT Edema 2+ all extremities +BM Labs reviewed Wt: 214# RDN following.
--- NOTE | 2016-11-13 19:15 | NUR ---
REPORT RECIEVED, SHIFT ASSESMENT COMPLETE, PT IS SEDATED ON VENT, ON 40% FIO2 WITH 97% O2 SAT. CRACKLES HEARD IN B/L UPPER LOBES, DIMINISHED IN B/L LOWER LOBES, S1S2, CM-ST, PATENT LEFT IJ TRIALYSIS WITH PROPOFOL AND NS INFUSING, ABDOMEN IS DISTENDED WITH HYPO BS, PATENT OGT WITH PULMOCARE INFUSING VIA PUMP, NO RESIDUAL NOTED, PATENT F/C WITH UVALDO UOP, EDEMA NOTED IN ALL EXTREMETIES, ALL PPP, VSS, WILL CON'T TO MONITOR
--- NOTE | 2016-11-13 20:00 | NUR ---
PT IN UNCONTROLLED AFIB AT THIS TIME, DR. NORTON NOTIFIED, NEW ORDERS RECIEVED,
--- NOTE | 2016-11-13 21:25 | NUR ---
UPDATE CALLED TO DR. NORTON, NEW ORDERS RECIEVED,
--- NOTE | 2016-11-13 23:13 | NUR ---
REASSESSMENT COMPLETE PER FLOW SHEET. VSS. NO NEW CHANGES AT THIS TIME. WILL CONTINUE TO MONITOR.
[2016-11-14] VITALS (10 sets, daily range): BP systolic 97–134; BP diastolic 51–88
--- NOTE | 2016-11-14 01:00 | NUR ---
REPOSITIONED FOR COMFORT, ORAL CARE PROVIDED
--- NOTE | 2016-11-14 03:00 | NUR ---
REASSESSMENT COMPLETE, NO CHANGES NOTED, PT REPOSITIONED FOR COMFORT, ORAL CARE PROVIDED
[2016-11-14 03:37] LABS: BASOPHILS 0.3 % (0.0-2.0); EOSINOPHILS 2.8 % (0-7); HEMATOCRIT 36.3 % (42.0-54.0); HEMOGLOBIN 11.5 g/dL (13.5-17.5); IMMATURE GRANULOCYTES 2.4 % (0-5); LYMPHOCYTES 7.8 % (15-50); MCH 30.9 pg (26.0-34.0); MCHC 31.7 g/dL (31.0-37.0); MCV 97.6 fL (80.0-100.0); MEAN PLATELET VOLUME 9.1 fL (7.4-10.4); MONOCYTES 6.8 % (2-11); NEUTROPHILS 79.9 % (40-80); RBC 3.72 10x6/uL (4.20-6.10)
[2016-11-14 03:39] LABS: PLATELET COUNT 328 10x3/uL (130-400); WBC 17.6 10x3/uL (4.8-10.8)
[2016-11-14 03:58] LABS: ALBUMIN 2.4 g/dL (3.4-5.0); ANION GAP 11.4 mmol/L (8-16); BILIRUBIN - DIRECT 0.3 mg/dL (0.00-0.30); BILIRUBIN - INDIRECT 0.32 mg/dL (0.00-1.00); BILIRUBIN - TOTAL 0.62 mg/dL (0.2-1.3); CALCIUM 7.9 mg/dL (8.5-10.1); CARBON DIOXIDE 30.6 mmol/L (21.0-32.0); CREATININE - SERUM 2.8 mg/dL (0.6-1.3); MAGNESIUM - SERUM 2.3 mg/dL (1.8-2.4); PHOSPHOROUS 6.4 mg/dL (2.5-4.9); PROTEIN - SERUM 7.3 g/dL (6.4-8.2)
--- NOTE | 2016-11-14 05:19 | NUR ---
COMPLETE BATH AND LINEN CHANGE, REPOSITIONED FOR COMFORT, WILL CON'T TO MONITOR
--- NOTE | 2016-11-14 07:28 | NUR ---
PT HR DROPPED INTO THE 30'S, CITLALY HENDRIX CALLED, FAMILY NOTIFIED OF CHANGE IN PT STATUS, DNR OBTAINED AT THIS TIME OVER PHONE FROM SON, KIMBERLEY DAVID HEART WITNESSED
--- NOTE | 2016-11-14 15:10 | NUR ---
0700 ASSESSMENT COMPLETE PER FLOWSHEET. 0720 PT BLOCKED DOWN TO 27 HEART BEATS PER MINUTE SEE CODE BLUE SHEET. FAMILY CALLED. 1030 FAMILY AT THE BEDSIDE, DR MORELAND SPEAKING TO FAMILY ABOUT HOW CRITICAL PT IS. SON STATES FATHER HAS A LIVING WILL AND WOULD NOT WANT ANY OF THIS. 1130 FAMILY CONTINUES TO BE AT THE BEDSIDE. DR DOW HERE PT HR 30. TALKING TO FAMILY OK FOR TERMINAL EXTUBATION. 1200 4MG MSO4 GIVEN IVP. DRIPS ARE TURNED OFF. PT EXTUBATED TO 4 LITER OF O2 PER ORDERS. DR MORELAND NOTIFIED. [address] DOW. [facility] CALLED.
[2016-11-14 18:09] LABS: AFB SPECIMEN PROCESSING Concentration (())
[2016-11-15 10:19] LABS: FUNGUS STAIN Final report (())
--- NOTE | 2016-11-17 16:17 | NUR ---
Per CMS protocol, restraint report logged into data base.
--- NOTE | 2016-11-19 07:17 | EEG ---
PATIENT:MARIYA OZUNA DATE OF SERVICE: 11/08/16 MEDICAL RECORD: [id number] DATE OF : 41 LOCATION:D.230 D.ICU ADMISSION DATE: 11/08/16 REFERRING PHYSICIAN: INTERPRETING PHYSICIAN: UMER HAWKINS MD DATE OF SERVICE: 11/09/2016 Electroencephalographic Report Referred by myself as an inpatient, currently in room 2307. ELECTROENCEPHALOGRAM NUMBER: [id number]. DATE OF EXAMINATION: 11/09/2016 at 12:00 noon. TECHNICAL DATA: This electroencephalographic recording consisted of approximately 20 minutes of data collection utilizing the international 10/20 system of electrode placement and both referential and non-referential montages. Sixteen channels of electrocerebral recording are accompanied by a 17th channel dedicated to the electrocardiographic rhythm and 2 channels of electromyographic recording. Recording is performed entirely in the comatose state utilizing activation by photic stimulation. ELECTROENCEPHALOGRAPHIC DATA: The entirety of the recorded electrocerebral activity is performed in the comatose state. Electromyographic artifact remains prominent. Rapid eye movements are not seen. The posterior dominant background is not observed. The predominant electrocerebral activity consists of a mixture of irregular, generalized and symmetric delta slowing in the range of 1-2 Hz seen continuously throughout the recording. There is occasionally some intermixed, irregular, generalized and symmetric slowing in the theta range. No focal slowing is identified. No epileptiform discharges are seen. Photic stimulation induces no change in the recorded electrocerebral activity. INTERPRETATION: Continuous slow, generalized (coma). This electroencephalographic recording is indicative of a moderately severe diffuse encephalopathy. TRANSINT:[id number] Voice Confirmation ID: [id number] DOCUMENT ID: [id number] UMER HAWKINS MD at 0717 CC: [id number] DICTATION DATE: 11/10/1615 JUNIOR SALES ASSISTANT: 11/10/16 0814 DIS IN 11/14/16 [address] [place] [address]
--- NOTE | 2016-11-23 09:40 | PRO ---
PATIENT:MARIYA OZUNA MEDICAL RECORD: [id number] : 41 LOCATION:.[facility] D.2307 ADMISSION DATE: 11/08/16 PROCEDURE PERFORMED BY: JAMEY KOTHARI MD DATE OF PROCEDURE: 11/12/2016 PROCEDURE: Fiberoptic bronchoscopy. INDICATION: Mr. Ozuna is a 71-year-old gentleman who was brought unresponsive of mechanical ventilation, respiratory failure, has bilateral infiltrate on the chest x-ray, getting worse. Fiberoptic bronchoscopy was carried out to inspect the airway as well as to obtain specimen for culture and sensitivity. PROCEDURE: The patient already orally intubated. The fiberoptic bronchoscope was easily passed through the ET tube. There was thick yellowish secretion bilaterally. There were severe bronchitic changes specially the lower lobe which bled easily by touching the bronchoscope. Overall, there were no endobronchial lesion seen bilaterally. Overall, the patient tolerated the procedure very well. Specimen washing was obtained and sent for routine culture and sensitivity, AFB and fungus. TRANSINT:[id number] Voice Confirmation ID: [id number] DOCUMENT ID: [id number] JAMEY KOTHARI MD at 0940 CC: [id number] DICTATION DATE: 11/12/16 1154 SENIOR ASSOCIATE: 11/12/16 1219 DIS IN 11/14/[address] [address]
--- NOTE | 2016-12-10 13:31 | DS ---
PATIENT:MARIYA OZUNA :41 MEDICAL RECORD: [id number] DISCHARGE SUMMARY ADMISSION DATE: 11/08/16 DISCHARGE DATE: 11/14/16 Discharge Summary Note DATE OF ADMISSION: 11/08/2016 DATE OF DISCHARGE: 11/14/2016 CONSULTS: Dr. Engel with general surgery, Dr. Ma with pulmonology, Dr. Childs with neurology and Dr. Magaña with cardiology. SIGNIFICANT TESTS AND PROCEDURES: On 11/10/2016, head CT, no acute abnormalities, mild cerebral atrophy, and pansinusitis. On 11/08/2016, echocardiogram, EF 30% to 35%. Valvular structures normal, [id number] MR, mild TR, pulmonary pressure normal. No pericardial effusion or thrombus read by Dr. Magaña. On 11/09/2016 and EEG indicative indicators of moderately severe diffuse encephalopathy read by Dr. Childs. HOSPITAL COURSE: The patient is a 71-year-old male, who was found unresponsive at home with agonal breathing. He was intubated and sent to [facility], he was then transferred to [place] [place] ICU on the ventilator, oliguric, obtunded with right lower lobe pneumonia. Dr. Engel was consulted for Trialysis catheter placement. Dr. Ma was consulted and performed a bronchoscopy. The Gram stain showed +1 normal respiratory blaine, no blood cultures or urine cultures were drawn. Due to the patient being found unresponsive and unknown if the patient sustained an anoxic brain injury, Dr. Childs with neurology was consulted and EEG was done, which showed continuous slow, generalized encephalographic recording which showed that the patient was in a coma with moderately severe diffuse encephalopathy. The patient was not waking up from sedation as expected. Echocardiogram on 11/08/2016 showed EF 30% to 35%, no pericardial effusion. The family reports the patient had severe COPD and had to sleep sitting up most of the time, very short of breath just walking across the room, on home oxygen. His lung function has been deteriorating. Dr. Ma with pulmonology and Dr. Tran attempted multiple times to wean the patient off the ventilator, which was unsuccessful thought to his severe emphysema. He was on IV antibiotics for the pneumonia. He also received pressors for hypotension which were weaned off. On 11/14/2016, the patient had bradycardia and received IV atropine. The family decided to make him DNR. He was terminally extubated and on 11/14/2016 at 12:20 p.m. and pronounced by Dr. Walker. TRANSINT:[id number] Voice Confirmation ID: [id number] DOCUMENT ID: [id number] Dictated By: OCTAVIA ARAUJO I have interviewed/examined the above patient and agree with these documented findings. DISCHARGE SUMMARY REPORT [id number] MARIYA OZUNA, DANNY SEVERINO at 1331 at 1655 CC: [id number] DICTATION DATE: 12/08/16 1318 DIRECTOR OF LEARNING: 12/09/16 0217 DIS IN 11/14/16 [address] [place] [address]
[2016-12-12 07:21] LABS: FUNGUS MYCOLOGY CULTURE Final report (())
[2017-01-03 12:17] LABS: ACID FAST CULTURE Negative (()); ACID FAST SMEAR Negative (())
== END 2016-11-14 18:00 | DRG 870 ==
LOC: D.ICU 12:50
PROVIDERS: Internal Medicine Interventional Cardiology; Internal Medicine Nephrology; Internal Medicine Pulmonary Disease; ADMIT Internal Medicine Nephrology
PROC: 05HN33Z Insertion of Infusion Device into Left Internal Jugular Vein, Percutaneous Approach (ICD-10-PCS; principal; 2016-11-08)
PROC: 5A1955Z Respiratory Ventilation, Greater than 96 Consecutive Hours (ICD-10-PCS; 2016-11-08)
PROC: B544ZZA Ultrasonography of Left Jugular Veins, Guidance (ICD-10-PCS; 2016-11-08)
PROC: 0BB78ZX Excision of Left Main Bronchus, Via Natural or Artificial Opening Endoscopic, Diagnostic (ICD-10-PCS; 2016-11-12)
PROC: 0BB38ZX Excision of Right Main Bronchus, Via Natural or Artificial Opening Endoscopic, Diagnostic (ICD-10-PCS; 2016-11-12)
DX: A41.9 Sepsis, unspecified organism (principal); R65.21 Severe sepsis with septic shock; J96.21 Acute and chronic respiratory failure with hypoxia; J18.9 Pneumonia, unspecified organism; N17.0 Acute kidney failure with tubular necrosis; I50.23 Acute on chronic systolic (congestive) heart failure; G93.40 Encephalopathy, unspecified; J96.22 Acute and chronic respiratory failure with hypercapnia; J44.0 Chronic obstructive pulmonary disease with (acute) lower respiratory infection; J44.1 Chronic obstructive pulmonary disease with (acute) exacerbation; G93.1 Anoxic brain damage, not elsewhere classified; E87.5 Hyperkalemia; E87.6 Hypokalemia; I11.0 Hypertensive heart disease with heart failure; I25.10 Atherosclerotic heart disease of native coronary artery without angina pectoris; D64.9 Anemia, unspecified; E88.09 Other disorders of plasma-protein metabolism, not elsewhere classified; R74.8 Abnormal levels of other serum enzymes; I08.1 Rheumatic disorders of both mitral and tricuspid valves; R00.1 Bradycardia, unspecified; Z66 Do not resuscitate; J32.4 Chronic pansinusitis; Z95.5 Presence of coronary angioplasty implant and graft